=== PATIENT | female | born 1950 | race Caucasian/White ===

== ENCOUNTER → 2017-05-14 | Outpatient (CLI) | payer OTHER | END | disposition home or self-care (01) | LOC: RAH 14:06 | PROVIDERS: ATTEND Internal Medicine | DX: Z12.31 Encounter for screening mammogram for malignant neoplasm of breast (principal) | CPT/HCPCS: 77067 ==

== ENCOUNTER → 2018-05-20 | Outpatient (CLI) | payer MEDICARE, OTHER | END | disposition home or self-care (01) | LOC: RAH 08:17 | PROVIDERS: ATTEND Internal Medicine | DX: Z12.31 Encounter for screening mammogram for malignant neoplasm of breast (principal) | CPT/HCPCS: 77067 ==

== ENCOUNTER → 2020-07-07 | Outpatient (CLI) | payer MEDICARE, OTHER | END | disposition home or self-care (01) | LOC: RAH 11:24 | PROVIDERS: ATTEND Internal Medicine | DX: Z12.31 Encounter for screening mammogram for malignant neoplasm of breast (principal); N64.89 Other specified disorders of breast | CPT/HCPCS: 77067 ==

== ENCOUNTER → 2020-09-29 | Outpatient (CLI) | payer MEDICARE, OTHER | END | disposition home or self-care (01) | LOC: RAH 09:44 | PROVIDERS: ATTEND Internal Medicine | DX: R92.8 Other abnormal and inconclusive findings on diagnostic imaging of breast (principal) | CPT/HCPCS: 76641 ==

== ENCOUNTER 2021-06-15 05:40 | Observation (INO) | payer MEDICARE, OTHER ==
[~2021-06-15] VITALS: Ht 157.5 cm; Wt 70.3 kg
[2021-06-15 06:10] LABS: APPEARANCE,URINE Clear (CLEAR); BILIRUBIN,URINE Negative (NEGATIVE); COLOR,URINE Yellow (YELLOW); GLUCOSE, URINE (UA) Negative (NEGATIVE); KETONES,URINE Negative (NEGATIVE); LEUKOCYTE ESTERASE ,URINE Moderate (NEGATIVE); NITRATE,URINE Negative (NEGATIVE); OCCULT BLOOD,URINE Negative (NEGATIVE); PROTEIN,URINE Negative (NEGATIVE); UROBILINOGEN,URINE 0.2 mg/dL (0.2-1.0)
[2021-06-15 06:17] LABS: BASOPHILS % (AUTO) 0.9 % (0.0-5.0); EOSINOPHILS % (AUTO) 2.5 % (0.0-8.0); HEMATOCRIT 46.9 % (36-48); LYMPHOCYTES % (AUTO) 38.2 % (21.0-51.0); MEAN CORPUSCULAR HEMOGLOBIN 31.4 pg (27.0-33.0); MEAN CORPUSCULAR HGB CONC 33.5 g/dL (32.0-36.0); MEAN CORPUSCULAR VOLUME 93.8 fL (79-99); PLATELET COUNT (AUTO) 319 K/uL (130-400); RED CELL DISTRIBUTION WIDTH 12.4 % (11.0-15.5); WHITE BLOOD COUNT (AUTO) 10.1 K/uL (4.8-10.8)
[2021-06-15 06:29] LABS: BACTERIA,URINE Rare /HPF (None Seen); RBC,URINE 0-1 /HPF (0-1); SQUAMOUS EPITHELIAL CELL,UR Few /HPF (0-2)
[2021-06-15 06:33] LABS: ALBUMIN 4.2 g/dL (3.5-5.0); BILIRUBIN,TOTAL 0.2 mg/dL (0.2-1.0); MAGNESIUM 1.9 mg/dL (1.80-2.40); POTASSIUM 3.9 mmol/L (3.5-5.1); TOTAL PROTEIN, SERUM 6.7 g/dL (6.0-8.3)
[2021-06-15 06:49] LABS: B-TYPE NATRIURETIC PEPTIDE 41 pg/mL (0-100)
[2021-06-15] MEDS ORDERED: ASPIRIN 325MG TAB PO SCH (08:00)
[2021-06-15] MEDS ORDERED: ALBUTEROL 0.083% 2.5 MG/3 ML INH IH PRN (08:30)
[2021-06-15] MEDS ORDERED: ONDANSETRON 4MG INJ IVP PRN (08:30)
[2021-06-15] MEDS ORDERED: ACETAMINOPHEN 325 MG TAB PO PRN (08:30)
[2021-06-15] MEDS ORDERED: DOXYCYCLINE 100MG+NS 250ML IV SCH (08:30)
[2021-06-15] MEDS ORDERED: LABETALOL 20MG SYG IV PRN (08:30)
[2021-06-15] MEDS ORDERED: LACTULOSE 20 GM/30 ML UDCUP PO PRN (08:30)
[2021-06-15] MEDS ORDERED: HYDRALAZINE 20MG/ML VIAL IV PRN (08:30)
[2021-06-15] MEDS: PANTOPRAZOLE 40 MG TAB DR PO SCH (09:00)
[2021-06-15] MEDS: ENOXAPARIN SODIUM 30 MG/0.3 ML SQ SCH (09:00)
[2021-06-15] MEDS: DOXYCYCLINE 100MG+NS 250ML 250 ML IV SCH ×2 (09:00→20:48)
[2021-06-15] MEDS ORDERED: ASPIRIN 81 MG EC TAB PO SCH (09:00)
[2021-06-15] MEDS: METOPROLOL TARTRATE 25 MG TAB PO SCH ×2 (09:00→20:48)
[2021-06-15 10:21] LABS: CHOLESTEROL 227 mg/dL (<200); HDL CHOLESTEROL 57 mg/dL (35-85); LDL DIRECT 132 mg/dL (0-99); TRIGLYCERIDES 166 mg/dL (30-200)
[2021-06-15] MEDS ORDERED: ASPI-1005 PO (10:45)
[2021-06-15] MEDS ORDERED: METO-409 PO (10:49)
[2021-06-15] MEDS ORDERED: CETI10CA5 PO (10:49)
[2021-06-15] MEDS ORDERED: LEVO100C4 PO (10:49)
[2021-06-15] MEDS ORDERED: AMLO-257 PO (10:49)
[2021-06-15] MEDS ORDERED: FENO130C14 PO (10:49)
[2021-06-15] MEDS ORDERED: MONT10TA21 PO (10:49)
[2021-06-15] MEDS: INSULIN HUMULIN R 100 UNIT/ML 3ML SQ SCH ×3 (11:30→20:13)
[2021-06-16 05:41] LABS: BASOPHILS % (AUTO) 0.7 % (0.0-5.0); EOSINOPHILS % (AUTO) 3.1 % (0.0-8.0); LYMPHOCYTES % (AUTO) 36.7 % (21.0-51.0); MEAN CORPUSCULAR HEMOGLOBIN 31.5 pg (27.0-33.0); MEAN CORPUSCULAR HGB CONC 34.1 g/dL (32.0-36.0); MEAN CORPUSCULAR VOLUME 92.1 fL (79-99); MONOCYTES % (AUTO) 8.9 % (3.0-13.0); NEUTROPHILS % (AUTO) 49.9 % (40.0-77.0); PLATELET COUNT (AUTO) 272 K/uL (130-400); RED BLOOD CELL COUNT(AUTO) 4.45 MIL/uL (4.00-5.50); RED CELL DISTRIBUTION WIDTH 12.3 % (11.0-15.5); WHITE BLOOD COUNT (AUTO) 9.8 K/uL (4.8-10.8)
[2021-06-16 05:52] LABS: CREATININE 0.9 mg/dL (0.5-1.5); MAGNESIUM 1.8 mg/dL (1.80-2.40); PHOSPHORUS 3.2 mg/dL (2.5-4.9); POTASSIUM 3.7 mmol/L (3.5-5.1)
[2021-06-16] MEDS: INSULIN HUMULIN R 100 UNIT/ML 3ML SQ SCH ×3 (07:30→16:25)
[2021-06-16] MEDS ORDERED: LEVOTHYROXINE 100 MCG TABLET PO SCH (07:30)
[2021-06-16] MEDS ORDERED: CETIRIZINE HCL 5 MG TABLET PO SCH (09:00)
[2021-06-16] MEDS ORDERED: ASPIRIN 81 MG EC TAB PO SCH (09:00)
[2021-06-16] MEDS: PANTOPRAZOLE 40 MG TAB DR PO SCH (09:00)
[2021-06-16] MEDS: ENOXAPARIN SODIUM 30 MG/0.3 ML SQ SCH (09:00)
[2021-06-16] MEDS ORDERED: METOPROLOL SUCCINATE 50 MG TAB.SR.24H PO SCH (09:00)
[2021-06-16] MEDS ORDERED: LEVOFLOXACIN 500 MG TABLET PO SCH (10:30)
[2021-06-16 12:00] VITALS: BP 165/100
[2021-06-16] MEDS ORDERED: LEVO500T90 PO (15:49)
[2021-06-16] MEDS ORDERED: MONTELUKAST SODIUM 10 MG TAB PO SCH (21:00)
[2021-06-16] MEDS ORDERED: FENOFIBRATE 130 MG PO SCH (21:00)
[2021-06-16] MEDS ORDERED: AMLODIPINE 5 MG TAB PO SCH (21:00)
== END 2021-06-16 18:00 | disposition home or self-care (01) ==
LOC: EDH 05:40 → INTOOBSV 08:20 → EDHIP 08:20 → 4AH 06-16 12:00
PROVIDERS: ADMIT Internal Medicine; ATTEND Internal Medicine
DX: R00.2 Palpitations (principal); I20.0 Unstable angina; I10 Essential (primary) hypertension; E03.9 Hypothyroidism, unspecified; E78.5 Hyperlipidemia, unspecified; N39.0 Urinary tract infection, site not specified; Z79.890 Hormone replacement therapy; Z87.440 Personal history of urinary (tract) infections; Z90.49 Acquired absence of other specified parts of digestive tract; Z79.899 Other long term (current) drug therapy; Z90.710 Acquired absence of both cervix and uterus
CPT/HCPCS: 36415 ×2; 71045; 80048; 80053; 80061; 81001; 82550 ×4; 82948 ×3; 83735 ×2; 83874 ×3; 83880; 84100; 84443; 84484 ×4; 85025 ×2; 87088; 93005; 93306; 93356; 96365; 96366; 96372 ×2; 99285; G0378 ×33; J1650 ×2; J3490 ×3

== ENCOUNTER → 2021-09-13 | Outpatient (CLI) | payer MEDICARE, OTHER ==
[~2021-09-13] MED LIST: AMLO-257 PO; ASPI-1005 PO; CETI10CA5 PO; FENO130C14 PO; IOHEXOL 350 MG/ML 100ML INFUS..BTL IV ONE; LEVO100C4 PO; LEVO500T90 PO; METO-409 PO; MONT10TA21 PO
== END | disposition home or self-care (01) ==
LOC: RAH 09:10
PROVIDERS: ATTEND Student in an Organized Health Care Education/Training Program
DX: I25.10 Atherosclerotic heart disease of native coronary artery without angina pectoris (principal); R07.9 Chest pain, unspecified
CPT/HCPCS: 75574; Q9967

== ENCOUNTER → 2022-10-23 | Outpatient (CLI) | payer MEDICARE ==
[~2022-10-23] MED LIST changes: -IOHEXOL 350 MG/ML 100ML INFUS..BTL IV ONE; +LEVO-70 PO; -LEVO500T90 PO; +MONT-47 PO; -MONT10TA21 PO
[2022-10-23 13:18] LABS: CHOLESTEROL 198 mg/dL (<200); HDL CHOLESTEROL 60 mg/dL (35-85); LDL DIRECT 113 mg/dL (0-99); TRIGLYCERIDES 117 mg/dL (30-200)
== END | disposition home or self-care (01) ==
LOC: LAB 08:06
PROVIDERS: ATTEND Student in an Organized Health Care Education/Training Program
DX: E78.5 Hyperlipidemia, unspecified (principal)
CPT/HCPCS: 36415; 80061

== ENCOUNTER → 2023-03-13 | Outpatient (CLI) | payer MEDICARE | END | disposition home or self-care (01) | LOC: RAH 15:41 | PROVIDERS: ATTEND Family Medicine | DX: Z12.31 Encounter for screening mammogram for malignant neoplasm of breast (principal) | CPT/HCPCS: 77067 ==

== ENCOUNTER → 2023-09-18 | Outpatient (CLI) | payer MEDICARE ==
[2023-09-18 12:42] LABS: CHOLESTEROL 222 mg/dL (<200); HDL CHOLESTEROL 57 mg/dL (35-85); LDL DIRECT 148 mg/dL (0-99); TRIGLYCERIDES 80 mg/dL (30-200)
== END | disposition home or self-care (01) ==
LOC: LAB 08:17
PROVIDERS: ATTEND Student in an Organized Health Care Education/Training Program
DX: E78.5 Hyperlipidemia, unspecified (principal)
CPT/HCPCS: 36415; 80061

== ENCOUNTER → 2023-12-04 | Outpatient (CLI) | payer MEDICARE ==
[2023-12-04 12:29] LABS: CHOLESTEROL 166 mg/dL (<200); HDL CHOLESTEROL 57 mg/dL (35-85); LDL DIRECT 93 mg/dL (0-99); TRIGLYCERIDES 104 mg/dL (30-200)
== END | disposition home or self-care (01) ==
LOC: LAB 08:52
PROVIDERS: ATTEND Student in an Organized Health Care Education/Training Program
DX: I08.0 Rheumatic disorders of both mitral and aortic valves (principal); I10 Essential (primary) hypertension; E78.5 Hyperlipidemia, unspecified; E03.9 Hypothyroidism, unspecified; R07.89 Other chest pain
CPT/HCPCS: 36415; 80061

== ENCOUNTER 2024-04-16 06:55 | Day surgery (SDC) | payer MEDICARE ==
[2024-04-16] VITALS (9 sets, daily range): BP systolic 106–146; BP diastolic 51–82; PULSE 67–82; RESP 13–19; TEMP 97.2–207.7
[~2024-04-16] VITALS: Ht 157.5 cm; Wt 54.9 kg
[~2024-04-16 06:55] MED LIST changes: -ASPI-1005 PO; +CRAN1CAP5 PO; +CYAN1TAB18 SL; -FENO130C14 PO; +GLUC-236 PO; -LEVO-70 PO; -LEVO100C4 PO; +LEVO88CA4 PO; -MONT-47 PO; +MULT-1367 PO; +PROG100C11 PO
[2024-04-16] MEDS ORDERED: EVOL140S2 SQ (08:37)
[2024-04-16] MEDS ORDERED: SEMA2PEN SQ (08:39)
[2024-04-16] MEDS ORDERED: CETI10CA5 PO (08:39)
[2024-04-16] MEDS ORDERED: 0.9%NACL 1000ML 1,000 ML IV ONE (08:44)
[2024-04-16] MEDS ORDERED: proPOFol 10 MG/ML 20ML VIAL IV ONE (09:44)
[2024-04-16] MEDS ORDERED: LIDOCAINE HCL 1% 20 ML VIAL ONE (09:44)
== END 2024-04-16 11:10 | disposition home or self-care (01) ==
LOC: ENDO 06:55 → DAH 06:55 → ENDO 11:10
PROVIDERS: ATTEND Internal Medicine Gastroenterology
DX: K62.5 Hemorrhage of anus and rectum (principal); K62.1 Rectal polyp; K64.0 First degree hemorrhoids; I10 Essential (primary) hypertension; E03.9 Hypothyroidism, unspecified; Z88.0 Allergy status to penicillin; E78.5 Hyperlipidemia, unspecified; Z90.49 Acquired absence of other specified parts of digestive tract; Z90.89 Acquired absence of other organs; Z79.899 Other long term (current) drug therapy
CPT/HCPCS: 45385; J7030 ×2; J2704; A4620; A4215 ×2; A4223; A4222; A4221; A4663; A4606; J3490

== ENCOUNTER → 2024-06-30 | Outpatient (CLI) | payer MEDICARE ==
[~2024-06-30] MED LIST changes: +EVOL140S2 SQ; +SEMA2PEN SQ
[2024-06-30 16:22] LABS: CHOLESTEROL 141 mg/dL (<200); HDL CHOLESTEROL 61 mg/dL (35-85); LDL DIRECT 68 mg/dL (0-99); TRIGLYCERIDES 233 mg/dL (30-200)
== END | disposition home or self-care (01) ==
LOC: LAB 13:35
PROVIDERS: ATTEND Student in an Organized Health Care Education/Training Program
DX: E78.5 Hyperlipidemia, unspecified (principal); I10 Essential (primary) hypertension
CPT/HCPCS: 36415; 80061